=== PATIENT | female | born 1950 | race Caucasian/White ===

== ENCOUNTER 2020-03-21 19:44 | Inpatient (IN) | payer MEDICARE, BC ==
[~2020-03-21] VITALS: Ht 162.6 cm; Wt 69.5 kg
[~2020-03-21 19:44] MED LIST: CENTTAB47 PO; LEVO50TA45 PO; OMEP1CAP73 PO; PRAV1TAB39 PO; PROAAER10 IN; PROBCAP4 PO; SERT25TA85 PO; SING10TA32 PO; TYLE500T78 PO; VITA-243 PO; VITA2000 PO
[2020-03-21] MEDS ORDERED: ATIV1TAB7 PO (21:37)
[2020-03-21] MEDS ORDERED: LORazepam 1 MG TAB PO STA (21:58)
[2020-03-22] MEDS ORDERED: ACETAMINOPHEN TAB 650MG DOSE (2X325MG) PO PRN
[2020-03-22] MEDS ORDERED: MOM 30ML SUSPENSION UDC PO PRN
[2020-03-22] MEDS ORDERED: LORazepam 1 MG TAB PO PRN
[2020-03-22] MEDS ORDERED: traZODone 50 MG TAB PO PRN
[2020-03-22] MEDS ORDERED: MAALOX 30 ML SUSP *UDC PO PRN
[2020-03-22] MEDS ORDERED: MULTCAP PO (00:33)
[2020-03-22] MEDS ORDERED: VITAD1000T PO (00:33)
[2020-03-22] MEDS ORDERED: PROBCAP14 PO (00:33)
[2020-03-22] MEDS ORDERED: ATIV1TAB7 PO (00:35)
[2020-03-22 01:44] VITALS: BP 125/71
[2020-03-22] MEDS ORDERED: ALBUTEROL 90 MCG/ACT 8GM HFA INHALER INH PRN (02:15)
[2020-03-22] MEDS: LEVOTHYROXINE 50MCG TABLET (0.05MG) PO SCH (06:05)
[2020-03-22 06:23] VITALS: BP 109/69
--- NOTE | 2020-03-22 07:46 | HPEPDOC ---
[facility] Medical History & Physical Date of Admission March 21, 2020 Date of Service: March 22, 2020 History and Physical CHIEF COMPLAINT: Medical H&P for [facility] HISTORY OF PRESENT ILLNESS: 69 yo female transferred from [facility] for hallucinations, paranoia and suicidal ideation. Patient very talkative with numerous complaints. She feels her hands have 'changed' and are 'not the same'. PAST MEDICAL HISTORY: #chronic sinusitis s/p surgery #colonic polyp removal - benign - 2014 #as per patient - LLL lobectomy due to bronchiectasis , done in [place] ALLERGIES: Please see below. REVIEW OF SYSTEMS: Negative except as per HPI HOME MEDICATIONS: Please see below. PHYSICAL EXAMINATION: VITAL SIGNS: See below GENERAL APPEARANCE: NAD, anxious, talkative HEENT: NC/AT, EOMI Lungs: CTA B/L Heart: +S1S2, RRR Abd: soft, NT, +BS Ext: no edema, good peripheral pulses b/l UE, +Allens test, warm to touch Neuro: 5/5 strength b/l UE, sensation intact LABORATORY DATA: See below. MICROBIOLOGY: Please see below. ASSESSMENT: 69 yo female with PMHx of chronic sinusitis s/p surgery, and colonic polyp s/p removal - benign, transferred to [facility] by police care from [facility] for hallucinations, paranoia and suicidal ideation. #psych/SI - as per primary team - psychiatry #chronic sinusitis - no complaints #colonic polyp - she states she has had follow up Vital Signs Vital Signs Date Time Temp Pulse Resp B/P (MAP) Pulse Ox O2 Delivery O2 Flow Rate FiO2 03/22/20 06:23 97.9 80 12 109/69 (82) 03/22/20 01:44 99 Room Air Home Medications Scheduled Ascorbic Acid (Vitamin C) 500 Mg Tab, 500 MG PO QHS Cholecalciferol (Vitamin D3) (Vitamin D3) 1,000 Unit Tablet, 2,000 UNITS PO QHS Lactobacillus Acidophilus (Probiotic) 1 Each Capsule, 1 CAP PO QHS Levothyroxine Sodium (Levoxyl) 50 Mcg Tab, 50 MCG PO DAILY Montelukast Sodium (Singulair) 10 Mg Tab, 10 MG PO QHS Multivitamin (Multivitamins) 1 Each Capsule, 1 CAP PO QHS Pravastatin Sodium (Pravachol) 20 Mg Tab, 20 MG PO QHS Scheduled PRN Albuterol Sulfate (Proair Hfa) 108 Mcg/Act Aer, 108 MCG IN for WHEEZING Lorazepam (Ativan) 1 Mg Tablet, 1 MG PO BID PRN for ANXIETY NEW MEDICATION, HAS NOT STARTED HOME MED YET Allergies Coded Allergies: Quinolones (Verified Allergy, Mild, shaking, 03/21/20) Sulfa (Sulfonamide Antibiotics) (Verified Allergy, Mild, hives, 03/21/20) cefuroxime (Verified Allergy, Mild, 03/21/20) tetracycline (Verified Allergy, Mild, headache, 03/21/20) Cephalosporins (Verified Allergy, Unknown, 03/21/20) cod liver oil (Verified Allergy, Unknown, 03/21/20) moxifloxacin (Verified Allergy, Unknown, 03/21/20) A-FIB/CHADSVASC A-FIB History Current/History of A-Fib/PAF?: No SHABBIR WEIR MD March 22, 2020 07:43
[2020-03-22] MEDS ORDERED: FLUBLOK(EGG FREE)(QUAD)INFLUENZA VACC 0.5ML SYRINGE (90682)18YRS&OLDER IM ONE (09:00)
[2020-03-22] MEDS ORDERED: PREVNAR 13 VACCINE SYRINGE (CPT CODE:90670) IM ONE (09:00)
[2020-03-22 10:17] LABS: BASO # 0.1 10^3/uL (0.0-0.2); BASO % 1.1 % (0.0-1.0); EOS # 0.1 10^3/uL (0.0-0.5); EOS % 1.5 % (0.0-3.0); HEMATOCRIT 47.4 % (36.0-47.0); HEMOGLOBIN 15.3 g/dl (12.0-15.5); LYMPH # 1.5 10^3/uL (1.5-5.0); LYMPH % 27.2 % (24.0-44.0); MEAN CORPUSCULAR HEMOGLOBIN 30.1 pg (27.0-33.0); MEAN CORPUSCULAR HGB CONC 32.3 g/dl (32.0-36.5); MEAN CORPUSCULAR VOLUME 93.3 fl (80.0-96.0); MONO # 0.7 10^3/uL (0.0-0.8); MONO % 12.9 % (0.0-5.0); NEUTROPHILS % 56.9 % (36.0-66.0); PLATELET COUNT, AUTOMATED 340 10^3/uL (150-450); RED BLOOD COUNT 5.08 10^6/uL (4.00-5.40); WHITE BLOOD COUNT 5.3 10^3/uL (4.0-10.0)
[2020-03-22 10:39] LABS: ALBUMIN 3.7 GM/DL (3.2-5.2); ALT/SGPT 18 U/L (12-78); BILIRUBIN,TOTAL 0.5 MG/DL (0.2-1.0); BLOOD UREA NITROGEN 6 MG/DL (7-18); CALCIUM LEVEL 9.5 MG/DL (8.8-10.2); CARBON DIOXIDE LEVEL 31 MEQ/L (21-32); CHLORIDE LEVEL 104 MEQ/L (98-107); CREATININE FOR GFR 0.86 MG/DL (0.55-1.30); GLOMERULAR FILTRATION RATE > 60.0 (>45); GLUCOSE, FASTING 92 MG/DL (70-100); POTASSIUM SERUM 4.5 MEQ/L (3.5-5.1); SODIUM LEVEL 141 MEQ/L (136-145); TOTAL PROTEIN 7.2 GM/DL (6.4-8.2)
[2020-03-22] MEDS: MONTELUKAST 10 MG TAB PO SCH ×2 (22:10→22:34)
[2020-03-22] MEDS: ASCORBIC ACID 500 MG TAB PO SCH ×2 (22:10→22:34)
[2020-03-22] MEDS: PRAVASTATIN 20 MG TAB PO SCH ×2 (22:10→22:34)
[2020-03-22] MEDS: VITAMIN D 1,000 INTERNATIONAL UNITS TABLET PO SCH ×2 (22:11→22:34)
[2020-03-23] MEDS: LEVOTHYROXINE 50MCG TABLET (0.05MG) PO SCH (05:51)
[2020-03-23 06:12] VITALS: BP 131/63
--- NOTE | 2020-03-23 09:59 | MHDSPDOC ---
[facility] Discharge Summary Discharge Summary DATE OF ADMISSION: March 21, 2020 at 23:50 DATE OF DISCHARGE: Mar 23, 2020 at 12:30 DISCHARGE DIAGNOSES: 1. Adjustment disorder. 2. Malingering. REASON FOR ADMISSION: 69-year-old woman admitted after reportedly having significant anxiety, she was initially seen and had been disposition for discharge from the ER but had subsequently insisted on staying. She was admitted and not resumed on her home search lien as she had not taken it. CONSULTANTS INVOLVED: none TREATMENT AND PROGRESS ON THE UNIT :. The patient was admitted to the unit, without any other medications than her Ativan, she generally had an uneventful mission, she generally was interested in leaving and then subsequently changed her mind multiple times. The patient generally focused on gaining more attention by wanting to leave and then subsequently being upset when she is not allowed to. During her admission. No significant medication changes are made and she was admitted under voluntary status and she requested to go. During her discharge process. She continued to attempt to malinger for attention until proper boundaries were placed. DISCHARGE ASSESSMENT: 69-year-old woman with likely adjustment problems on malingering for attention presents send is treated with the supportive environment, which appears to demonstrate no significant effect. She is nonpsychotic with no suicidal or homicidal ideation. At this time. Her anxiety is unclear. However, I get the sense that this individuals probably a cluster C personality of some variety. However, she does not meet involuntary criteria on her discharge as she is nonpsychotic with a relatively normal mental status exam and has demonstrated no concerning ideation towards herself or others and has been in behavioral control. General: Well dressed with good hygiene Speech: Spontaneous and fluid Thought processes: Linear and logical Thought content: Future orientated Abstract reasoning, and computation: Intact Description of associations: Intact Description of abnormal or psychotic thoughts:Denies any suicidal or homicidal ideation. Denies any auditory or visual hallucinations. Does not appear to be responding to internal stimuli. Does not appear to be endorsing any bizarre or paranoid ideation. Judgment: chronically limited Insight: chronically limited Orientation: Alert and orientated 3 Recent and remote memory: Intact Attention span and concentration: Intact Fund of knowledge: Adequate Mood: "okay" Affect: Euthymic with a full range PLAN/FOLLOWUP ARRANGEMENTS: follow-up made with behavioral health provider, safety planning done with son. The amount of time spent in the coordination of care for this patient was approximately 45 minutes. Vital Signs/I&Os Vital Signs Date Time Temp Pulse Resp B/P (MAP) Pulse Ox O2 Delivery O2 Flow Rate FiO2 03/23/20 06:12 97.6 89 16 131/63 (85) 03/22/20 01:44 99 Room Air Medications Scheduled Ascorbic Acid (Vitamin C) 500 Mg Tab, 500 MG PO QHS, (Reported) Cholecalciferol (Vitamin D3) (Vitamin D3) 1,000 Unit Tablet, 2,000 UNITS PO QHS, (Reported) Lactobacillus Acidophilus (Probiotic) 1 Each Capsule, 1 CAP PO QHS, (Reported) Levothyroxine Sodium (Levoxyl) 50 Mcg Tab, 50 MCG PO DAILY, (Reported) Montelukast Sodium (Singulair) 10 Mg Tab, 10 MG PO QHS, (Reported) Multivitamin (Multivitamins) 1 Each Capsule, 1 CAP PO QHS, (Reported) Pravastatin Sodium (Pravachol) 20 Mg Tab, 20 MG PO QHS, (Reported) Scheduled PRN Albuterol Sulfate (Proair Hfa) 108 Mcg/Act Aer, 108 MCG IN for WHEEZING, (Reported) Lorazepam (Ativan) 1 Mg Tablet, 1 MG PO BID PRN for ANXIETY, (Reported) NEW MEDICATION, HAS NOT STARTED HOME MED YET Allergies Coded Allergies: Quinolones (Verified Allergy, Mild, shaking, 03/21/20) Sulfa (Sulfonamide Antibiotics) (Verified Allergy, Mild, hives, 03/21/20) cefuroxime (Verified Allergy, Mild, 03/21/20) tetracycline (Verified Allergy, Mild, headache, 03/21/20) Cephalosporins (Verified Allergy, Unknown, 03/21/20) cod liver oil (Verified Allergy, Unknown, 03/21/20) moxifloxacin (Verified Allergy, Unknown, 03/21/20) MARIANNA MART DO Mar 23, 2020 09:59
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
== END 2020-03-23 12:30 | disposition home or self-care (01) | DRG 882 ==
LOC: M ED 19:44 → M ED INP 23:50 → M PSY 03-22 00:37
PROVIDERS: ADMIT Psychiatry & Neurology Psychiatry; ATTEND Psychiatry & Neurology Addiction Medicine
DX: F43.20 Adjustment disorder, unspecified (principal); Z76.5 Malingerer [conscious simulation]; Z79.899 Other long term (current) drug therapy; Z88.2 Allergy status to sulfonamides; Z88.8 Allergy status to other drugs, medicaments and biological substances

== ENCOUNTER 2020-04-03 15:41 | Inpatient (IN) | payer MEDICARE, BC ==
[~2020-04-03] VITALS: Ht 162.6 cm; Wt 67.1 kg
[~2020-04-03 15:41] MED LIST changes: +ATIV1TAB7 PO; +D31000TA2 PO; +MULTCAP PO; +PROBCAP14 PO
[2020-04-03 16:27] LABS: HEMOGLOBIN 14.5 g/dl (12.0-15.5); MEAN CORPUSCULAR HEMOGLOBIN 30.8 pg (27.0-33.0); MEAN CORPUSCULAR VOLUME 93.4 fl (80.0-96.0); PLATELET COUNT, AUTOMATED 287 10^3/uL (150-450); RED BLOOD COUNT 4.71 10^6/uL (4.00-5.40); WHITE BLOOD COUNT 5.5 10^3/uL (4.0-10.0)
[2020-04-03 17:05] LABS: ALBUMIN 3.7 GM/DL (3.2-5.2); ALT/SGPT 20 U/L (12-78); BILIRUBIN,DIRECT 0.1 MG/DL (0.0-0.2); BILIRUBIN,TOTAL 0.4 MG/DL (0.2-1.0); BLOOD UREA NITROGEN 9 MG/DL (7-18); CALCIUM LEVEL 9.5 MG/DL (8.8-10.2); CARBON DIOXIDE LEVEL 29 MEQ/L (21-32); CHLORIDE LEVEL 102 MEQ/L (98-107); CREATININE FOR GFR 0.74 MG/DL (0.55-1.30); ETHYL ALCOHOL (ETHANOL) < 0.003 % (0.000-0.010); GLOMERULAR FILTRATION RATE > 60.0 (>45); GLUCOSE, FASTING 103 MG/DL (70-100); POTASSIUM SERUM 4.2 MEQ/L (3.5-5.1); SALICYLATE LEVEL < 1.7 MG/DL (5.0-30.0); SODIUM LEVEL 137 MEQ/L (136-145)
[2020-04-03 17:06] LABS: ACETAMINOPHEN LEVEL < 2.0 UG/ML (10.0-30.0)
[2020-04-03 17:16] LABS: AMPHETAMINES LEVEL URINE NEGATIVE (NEGATIVE); BARBITURATES URINE NEGATIVE (NEGATIVE); BENZODIAZEPINES URINE NEGATIVE (NEGATIVE); CANNABINOIDS URINE NEGATIVE (NEGATIVE); COCAINE METABOLITE URINE NEGATIVE (NEGATIVE); METHADONE URINE NEGATIVE (NEGATIVE); OPIATES URINE NEGATIVE (NEGATIVE); PHENCYCLIDINE URINE NEGATIVE (NEGATIVE)
[2020-04-03] MEDS: PRAVASTATIN 20 MG TAB PO SCH (21:00)
[2020-04-03] MEDS: VITAMIN D 1,000 INTERNATIONAL UNITS TABLET PO SCH (21:00)
[2020-04-03] MEDS: MONTELUKAST 10 MG TAB PO SCH (21:00)
[2020-04-03] MEDS: ASCORBIC ACID 500 MG TAB PO SCH (21:00)
[2020-04-03] MEDS ORDERED: ALBUTEROL 90 MCG/ACT 8GM HFA INHALER INH PRN (21:15)
[2020-04-03] MEDS ORDERED: OLANZapine ORAL DISINTEGRATING TAB 5MG PO PRN (21:15)
[2020-04-03] MEDS ORDERED: ACETAMINOPHEN TAB 650MG DOSE (2X325MG) PO PRN (21:15)
[2020-04-03] MEDS ORDERED: MAALOX 30 ML SUSP *UDC PO PRN (21:15)
[2020-04-03] MEDS ORDERED: traZODone 50 MG TAB PO PRN (21:15)
[2020-04-03] MEDS ORDERED: MOM 30ML SUSPENSION UDC PO PRN (21:15)
[2020-04-04 02:07] VITALS: BP 158/77
[2020-04-04] MEDS: LEVOTHYROXINE 50MCG TABLET (0.05MG) PO SCH (06:08)
[2020-04-04 06:26] VITALS: BP 122/78
[2020-04-04] MEDS ORDERED: LACTOBACILLUS ACIDOPHILUS CAP (BACID) PO SCH (09:00)
[2020-04-04] MEDS ORDERED: MULTIVITAMINS/MINERALS THERAP 1 TAB PO SCH (09:00)
--- NOTE | 2020-04-04 15:20 | REP ---
Two-view chest: 04/04/2020. Indication: Dyspnea. Cough. Comparison: 08/21/2012. Findings: The lungs are clear. Postoperative sequelae of the left arm noted with multiple surgical clips. There is no pleural effusion or pneumothorax. Cardiac silhouette is normal. Impression: Clear lungs. Electronically Signed by Chepe Reese DO 04/04/2020 03:11 P
[2020-04-04 16:25] VITALS: BP 138/84
[2020-04-04] MEDS: SERTRALINE HCL 25 MG TABLET PO SCH (16:29)
--- NOTE | 2020-04-04 17:07 | HPE ---
DATE OF ADMISSION: 04/04/2020 CHIEF COMPLAINT: "I think I have COVID." HISTORY OF PRESENT ILLNESS: 69-year-old female with history of paranoia, hallucinations, suicidal ideation, admitted to inpatient mental health unit and had traveled here from January 24 from [place], where she had been living in quarantine with her , who has been someone who has been on chemotherapy. Her has been checked for COVID times 4, all of which have been negative. The patient has been checked in [place], which was also negative. She now presents and says that she has a cough without fever, feels that she is cold, cough is productive of white sputum. No nausea, vomiting or abdominal pain. Says "I have COVID toes." Hospitalist was asked to evaluate for medical issues. The patient otherwise has had no headache. She has had 20 pound weight loss for the past six months and says that she has not been eating well. No nausea or vomiting. The patient has not had prior colonoscopy. No bright red blood per rectum, melena or any black tarry stools in the past. She had a prior history of colonic polyp removed, which was benign in 2014 and a left lower lobe lobectomy due to bronchiectasis, that was done in [place]. The patient otherwise denies any sore throat, dysuria, urgency, frequency, bilateral upper or lower extremity weakness or paresthesias. No bright red blood per rectum, melena or black tarry stools. PAST MEDICAL HISTORY: 1. Sinusitis. 2. Colonic polyp. 3. Left lower lobe lobectomy, status post due to bronchiectasis. 4. History of suicidal ideation, paranoia and hallucinations. ALLERGIES: CEPHALOSPORINS, COD FISH, QUINOLONES, SULFA, CEFUROXIME, MOXIFLOXACIN AND TETRACYCLINE. PAST SURGICAL HISTORY: Colon polyp removal, left lower lobectomy SOCIAL HISTORY: Denies cigarettes, alcohol, recreational drug use, retired. REVIEW OF SYSTEMS: Per history of present illness, 12-point system otherwise negative. PHYSICAL EXAMINATION: Temperature 99.4, pulse 101, respiratory rate 18, blood pressure 122/78, 98% on room air. General: The patient is awake, alert, and oriented times 3. Appears disheveled, anxious, pressured speech. No jugular venous distension (JVD), thyromegaly. Dry mucous membranes. Lungs are clear to auscultation. No wheezing, rales or rhonchi. Heart: S1, S2 sinus rhythm. Abdomen is soft, nontender, nondistended. Extremities: No cyanosis, clubbing or pitting edema. LABORATORY DATA: 04/03 complete blood count (CBC): White count 5.5, hemoglobin 14, hematocrit 44, platelet count 287. Sodium 137, potassium 4.2, chloride 102, bicarbonate 29, BUN 9, creatinine 0.74, chloride of 103. Calcium 9.5. Total bilirubin 0.4, direct bilirubin 0.1, AST 13, ALT 20, alkaline phosphatase 83, total protein 7, albumin of 3.7, thyroid simulating hormone (TSH) of 1.88. Urine toxicology screen is negative. ASSESSMENT AND PLAN: This is a 69-year-old female with history of chronic sinusitis, left lower lobectomy, colon polyp removal, which was benign, paranoia hallucinations, suicidal ideation, admitted for severe depression to inpatient mental health unit and she said "I have COVID." CURRENT ISSUES: 1. Cough, obtain a chest x-ray and respiratory panel and on empiric antibiotics. The patient has no fever or white count. 2. Severe depression, refer to psychiatrist for management. 3. History of colonic polyp removal, which was benign in 2014. No other acute issues. 4. History of chronic sinusitis, no sinus complaints or symptoms. 5. History of bronchiectasis. Will obtain a chest x-ray, outpatient followup with primary care physician. ELOISA
[2020-04-04] MEDS: OLANZapine ORAL DISINTEGRATING TAB 5MG PO SCH ×2 (17:15→21:06)
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
[2020-04-04] MEDS: MULTIVITAMINS/MINERALS THERAP 1 TAB PO SCH (21:06)
[2020-04-04] MEDS: LACTOBACILLUS ACIDOPHILUS CAP (BACID) PO SCH (21:06)
[2020-04-04] MEDS: VITAMIN D 1,000 INTERNATIONAL UNITS TABLET PO SCH (21:06)
[2020-04-04] MEDS: MONTELUKAST 10 MG TAB PO SCH (21:06)
[2020-04-04] MEDS: ASCORBIC ACID 500 MG TAB PO SCH (22:27)
[2020-04-04] MEDS: PRAVASTATIN 20 MG TAB PO SCH (22:27)
[2020-04-05] MEDS: LEVOTHYROXINE 50MCG TABLET (0.05MG) PO SCH (06:23)
[2020-04-05 06:43] VITALS: BP 130/58
[2020-04-05] MEDS: SERTRALINE HCL 25 MG TABLET PO SCH (08:37)
[2020-04-05] MEDS: OLANZapine ORAL DISINTEGRATING TAB 5MG PO SCH ×3 (08:37→21:21)
[2020-04-05 16:28] VITALS: BP 129/78
--- NOTE | 2020-04-05 17:05 | MHIPNPDOC ---
[facility] Progress Note Progress Note DATE OF SERVICE: 04/05/20 HISTORY: As per ED report: "Pt presented to ED via [facility]. Pt was D/C from [facility] this morning.Pt reported, had a CT of her head, nothing found. According to Pt's Son; Jerad, Pt continued to call her Son this morning to insist be tested for COVIN today. was tested 4xs. Pt's is diagnosed with Lymphoma and was D/C from Hospital today. "Didn't want to bring him to house, our house is too germy". "I don't know where he is". Family fears for 's safety if Pt is near him. "Keep thinking there is something physical going on with my body". Pt is obsessed with her health, is obsessed with her hands changing appearance. "I am not feeling myself". "Can't keep ahold of all this". Pt is incraseingly worried, obsessing about germs around . Per Pt's Son; Jerad, Pt is totally spiraling down, decompensating since last D/C from [facility]. Pt is increased manic, "Buligerant", disrespectful to others, continues to cycle around, rapid speech. Pt is convinced has COVIN and will contaminate the world because she wasn't able to control it. Pt believes she will go to assisted because of it. Pt has locked herself in house since ret urning from [facility]. She thinks it (virus) is bouncing back and fourth between the 2 of them. Family is afraid she will burn the house down if people come to get her. Pt is becoming more and more obsessive about the virus, according to Family'. VITAL SIGNS: See below. NEW TEST RESULTS: See below CURRENT MEDICATIONS: See below. MENTAL STATUS EXAMINATION: General Appearance: well groomed, appears stated age, hospital scrubs/clothing, wearing a face mask Build: average Demeanor: preoccupied Eye Contact: avoidant, at times is good Activity: anxious, Behavior: cooperative, restless, talkative, very anxious, obsessed about having COVID-19 Speech: clear, spontaneous, normal volume, loud at times, very talkative Mood: depressed, anxious Affect: inappropriate, anxious, disorganized Thought Process: circumstantial, tangential, flight of ideas, racing. obsessed Thought Content (Delusions): somatic delusions, anxious thoughts Thought Content (Other): preoccupied, obsessional, denies SI/HI Thought Content (Aggressive): none reported Perception (Hallucinations): none reported Perception (Other): none reported Cognition (Impairment of): memory, attention/concentration Cognition(Intelligence Est.): average Oriented: Awake, Alert Insight: poor Judgment: Poor Diagnoses 1. Illness Anxiety disorder 2. Adjustment disorder with anxious distress secondary to COVID-19 pandemic. 3. R/O Delusional disorder ( she thinks she has Covid-19) ASSESSMENT: She says she went to sleep last night but when she woke up this morning she felt weak, she had aches and pains this morning. she still feels that she has COVID-19. Now she feels that is the test they did on her some time ago. She perseverates about having COVID-19, she says she has the latest manifestations of the illness, she doesn't believe the test is negative. MANAGEMENT PLAN: Will continue with current treatment plan TIME SPENT: 20 minutes. Vital Signs Vital Signs Date Time Temp Pulse Resp B/P (MAP) Pulse Ox O2 Delivery O2 Flow Rate FiO2 04/05/20 06:43 98.1 85 18 130/58 (82) Room Air 04/04/20 02:07 98 Current Medications Current Medications Medications (Trade) Dose Ordered Sig/Melonie Route PRN Reason Start Time Stop Time Status Last Admin Dose Admin Acetaminophen (Tylenol Tab) 650 mg Q6HP PRN PO HEADACHE or DISCOMFORT 04/03/20 21:15 Al Hydrox/Mg Hydrox/Simethicone (Mylanta) 30 ml Q4HP PRN PO HEARTBURN/INDIGESTION 04/03/20 21:15 Albuterol Sulfate (Proventil, Ventolin Hfa) 2 puff Q6HP PRN INH WHEEZING 04/03/20 21:15 Ascorbic Acid (Vitamin C) 500 mg QHS PO 04/03/20 21:00 04/04/20 22:27 Home Med (Med Rec Complete!) ASDIRECTED XX 04/03/20 20:30 04/03/20 20:20 DC Lactobacillus Acidophilus (Bacid) 1 ea DAILY PO 04/04/20 09:00 04/04/20 17:18 DC Lactobacillus Acidophilus (Bacid) 1 ea QHS PO 04/04/20 21:00 04/04/20 21:06 Levothyroxine Sodium (Synthroid) 50 mcg DAILY@0600 PO 04/04/20 06:00 04/05/20 06:23 Magnesium Hydroxide (Milk Of Magnesia) 30 ml DAILYPRN PRN PO CONSTIPATION 04/03/20 21:15 Montelukast Sodium (Singulair) 10 mg QHS PO 04/03/20 21:00 04/04/20 21:06 Multivitamins (Theragram-M) 1 tab DAILY PO 04/04/20 09:00 04/04/20 17:18 DC Multivitamins (Theragram-M) 1 tab QHS PO 04/04/20 21:00 04/04/20 21:06 Olanzapine (ZyPREXA ZYDIS) 5 mg Q4HP PRN PO AGITATION 04/03/20 21:15 04/04/20 16:35 DC Olanzapine (ZyPREXA ZYDIS) 5 mg TID PO 04/04/20 16:00 04/05/20 15:37 Pravastatin Sodium (Pravachol) 20 mg QHS PO 04/03/20 21:00 04/04/20 22:27 Sertraline HCl (Zoloft) 25 mg QAM PO 04/04/20 09:00 04/05/20 08:37 Trazodone HCl (Desyrel) 50 mg QHSP PRN PO INSOMNIA 04/03/20 21:15 Vitamin D (Vitamin D) 2,000 units QHS PO 04/03/20 21:00 04/04/20 21:06 Allergies Coded Allergies: Sulfa (Sulfonamide Antibiotics) (Verified Allergy, Intermediate, hives, 04/03/20) cefuroxime (Verified Allergy, Mild, 04/03/20) Cephalosporins (Verified Allergy, Unknown, 04/03/20) moxifloxacin (Verified Allergy, Unknown, 04/03/20) Codfish (Verified Adverse Reaction, Intermediate, vomiting/diarrhea, 04/03/20) Quinolones (Verified Adverse Reaction, Mild, shaking, 04/03/20) tetracycline (Verified Adverse Reaction, Mild, headache, 04/03/20) LISY GOMEZ MD Apr 05, 2020 16:08
[2020-04-05] MEDS: MULTIVITAMINS/MINERALS THERAP 1 TAB PO SCH (21:21)
[2020-04-05] MEDS: MONTELUKAST 10 MG TAB PO SCH (21:21)
[2020-04-05] MEDS: VITAMIN D 1,000 INTERNATIONAL UNITS TABLET PO SCH (21:21)
[2020-04-05] MEDS: LACTOBACILLUS ACIDOPHILUS CAP (BACID) PO SCH (21:21)
[2020-04-05] MEDS: ASCORBIC ACID 500 MG TAB PO SCH (21:21)
[2020-04-05] MEDS: PRAVASTATIN 20 MG TAB PO SCH (21:21)
[2020-04-06] MEDS: LEVOTHYROXINE 50MCG TABLET (0.05MG) PO SCH (06:11)
[2020-04-06 06:39] VITALS: BP 132/70
[2020-04-06] MEDS: OLANZapine ORAL DISINTEGRATING TAB 5MG PO SCH ×2 (09:13→21:18)
[2020-04-06] MEDS: SERTRALINE HCL 50 MG TAB PO SCH (09:13)
[2020-04-06 15:45] VITALS: BP 130/70
[2020-04-06] MEDS: LACTOBACILLUS ACIDOPHILUS CAP (BACID) PO SCH (21:18)
[2020-04-06] MEDS: MULTIVITAMINS/MINERALS THERAP 1 TAB PO SCH (21:18)
[2020-04-06] MEDS: PRAVASTATIN 20 MG TAB PO SCH (21:18)
[2020-04-06] MEDS: ASCORBIC ACID 500 MG TAB PO SCH (21:18)
[2020-04-06] MEDS: MONTELUKAST 10 MG TAB PO SCH (21:18)
[2020-04-06] MEDS: VITAMIN D 1,000 INTERNATIONAL UNITS TABLET PO SCH (21:18)
[2020-04-07 06:00] VITALS: BP 145/77
[2020-04-07] MEDS: LEVOTHYROXINE 50MCG TABLET (0.05MG) PO SCH (06:12)
[2020-04-07] MEDS: SERTRALINE HCL 50 MG TAB PO SCH (08:40)
[2020-04-07 17:26] VITALS: BP 112/63
--- NOTE | 2020-04-07 18:40 | MHIPN ---
DATE: 04/07/2020 This is a progress note for the patient, it is a video assessment, we are doing this because of the virus pandemic. The patient is aware of it. VITAL SIGNS: Blood pressure 145/77, pulse 99, temperature 99.2. CHIEF COMPLAINT: She say she feels better. SUBJECTIVE: She is seen for followup, in the presence of staff. I have been assigned to her care today. I know her from her previous hospitalization a couple of weeks ago. She says she has been feeling better, and spoke of her anxieties related to the pandemic, the impact that the anxieties are having on her and her concerns for her . She tried reiterate what had happened, over the last couple of weeks, including her not being entirely convinced that the tests that were done on her and her, for COVID, which all turned out to be negative, were necessarily accurate. She says she believes their accuracy now "about 50%." She says she was less convinced a couple of days ago. She says last night was okay. She has also felt quite tired after she had been started on Zyprexa at 15 mg a day in divided doses, but that has been brought down, and she will be using only 5 mg at night from [facility] onwards. MENTAL STATUS EXAMINATION: She is cooperative, she is neat, she wears a mask. There is no psychomotor retardation but she is mildly fidgety, appears anxious. She is coherent, but somewhat circumstantial. Denies any thoughts of harming herself or anyone else and possibly has delusions, somatic, as well as those related to the COVID, in other words anxiety is so severe that she has possibly had difficulties with reality testing lately. She is alert and oriented. Judgment and insight remain compromised. ASSESSMENT: 1. Illness anxiety disorder. 2. Consider major depressive disorder now, with possible psychotic features. The other differential includes delusional disorder. She remains anxious, not convinced that the tests done on her were accurate, or her , they were all negative. The intensity of her belief probably reaches delusional proportions, it is mostly fixed, despite evidence of the contrary. PLAN: I would suggest continuing current care, observations, and the decrease in the olanzapine may help with sedation. She is to be encouraged to participate in activities as tolerated. Further recommendations will be made depending on the clinical picture. She will be assigned a psychiatrist tomorrow.
[2020-04-07] MEDS: VITAMIN D 1,000 INTERNATIONAL UNITS TABLET PO SCH (20:32)
[2020-04-07] MEDS: PRAVASTATIN 20 MG TAB PO SCH (20:32)
[2020-04-07] MEDS: MONTELUKAST 10 MG TAB PO SCH (20:32)
[2020-04-07] MEDS: ASCORBIC ACID 500 MG TAB PO SCH (20:32)
[2020-04-07] MEDS: MULTIVITAMINS/MINERALS THERAP 1 TAB PO SCH (20:32)
[2020-04-07] MEDS: LACTOBACILLUS ACIDOPHILUS CAP (BACID) PO SCH (20:32)
[2020-04-07] MEDS: OLANZapine ORAL DISINTEGRATING TAB 5MG PO SCH (20:32)
[2020-04-08] MEDS: LEVOTHYROXINE 50MCG TABLET (0.05MG) PO SCH (06:02)
[2020-04-08 06:47] VITALS: BP 127/66
[2020-04-08] MEDS: SERTRALINE HCL 50 MG TAB PO SCH (09:03)
--- NOTE | 2020-04-08 10:30 | MHIPNPDOC ---
[facility] Progress Note Progress Note DATE OF SERVICE: 04/08/20 Jagdish Amato presents today for a follow-up visit after decreasing her dosage of Zyprexa. Patient notes that she felt better yesterday, however, today she feels worse. When she woke up this morning, she felt that she had an eye infection, and she is worried again because her has started chemo therapy for the first time. Patient also notes that she has been very anxious lately, and she retreated to bed for the day. Patient feels that she is no longer in touch with the world and anybody in it. Patient denies suicidal and homicidal ideation. Patient is paranoid that she will get COVID-19. Patient is currently taking Zyprexa. ROS Psychiatric: +Paranoia, +Anxiety Eyes: +Eye discharge Objective Appearance: Fair grooming. Behavior: Fair attention still highly preoccupied with COVID-19. Affect: Flat with little reactivity at times. Speech: Speech is fluid. Judgement: Poor judgement. Insight: Poor insight. Assessment F22 Delusional disorders Plan Patient is a 69-year-old woman with no major psychiatric history in the past. She presents with quite a delusional fixation on COVID-19. It appears primarily more fixed and doesnt extend to other delusional thought content, suggesting more of a delusional disorder thats isolated, rather than a major depression with specific ideation of mood symptoms. However, we will try to treat both sides to see if it helps. Delusional disorder, somatic type. Change Zyprexa to Abilify 5 mg at night. Continue Sertraline 50 mg. Follow-up tomorrow. Vital Signs Vital Signs Date Time Temp Pulse Resp B/P (MAP) Pulse Ox O2 Delivery O2 Flow Rate FiO2 04/08/20 08:27 Room Air 04/08/20 06:47 98.6 83 14 127/66 (86) 97 Current Medications Current Medications Medications (Trade) Dose Ordered Sig/Melonie Route PRN Reason Start Time Stop Time Status Last Admin Dose Admin Acetaminophen (Tylenol Tab) 650 mg Q6HP PRN PO HEADACHE or DISCOMFORT 04/03/20 21:15 Al Hydrox/Mg Hydrox/Simethicone (Mylanta) 30 ml Q4HP PRN PO HEARTBURN/INDIGESTION 04/03/20 21:15 Albuterol Sulfate (Proventil, Ventolin Hfa) 2 puff Q6HP PRN INH WHEEZING 04/03/20 21:15 Ascorbic Acid (Vitamin C) 500 mg QHS PO 04/03/20 21:00 04/07/20 20:32 Home Med (Med Rec Complete!) ASDIRECTED XX 04/03/20 20:30 04/03/20 20:20 DC Lactobacillus Acidophilus (Bacid) 1 ea DAILY PO 04/04/20 09:00 04/04/20 17:18 DC Lactobacillus Acidophilus (Bacid) 1 ea QHS PO 04/04/20 21:00 04/07/20 20:32 Levothyroxine Sodium (Synthroid) 50 mcg DAILY@0600 PO 04/04/20 06:00 04/08/20 06:02 Magnesium Hydroxide (Milk Of Magnesia) 30 ml DAILYPRN PRN PO CONSTIPATION 04/03/20 21:15 Montelukast Sodium (Singulair) 10 mg QHS PO 04/03/20 21:00 04/07/20 20:32 Multivitamins (Theragram-M) 1 tab DAILY PO 04/04/20 09:00 04/04/20 17:18 DC Multivitamins (Theragram-M) 1 tab QHS PO 04/04/20 21:00 04/07/20 20:32 Olanzapine (ZyPREXA ZYDIS) 5 mg Q4HP PRN PO AGITATION 04/03/20 21:15 04/04/20 16:35 DC Olanzapine (ZyPREXA ZYDIS) 5 mg QHS PO 04/06/20 21:00 04/07/20 20:32 Olanzapine (ZyPREXA ZYDIS) 5 mg TID PO 04/04/20 16:00 04/06/20 11:20 DC 04/06/20 09:13 Pravastatin Sodium (Pravachol) 20 mg QHS PO 04/03/20 21:00 04/07/20 20:32 Sertraline HCl (Zoloft) 25 mg QAM PO 04/04/20 09:00 04/05/20 17:04 DC 04/05/20 08:37 Sertraline HCl (Zoloft) 50 mg QAM PO 6/15/20 09:00 04/08/20 09:03 Trazodone HCl (Desyrel) 50 mg QHSP PRN PO INSOMNIA 04/03/20 21:15 Vitamin D (Vitamin D) 2,000 units QHS PO 04/03/20 21:00 04/07/20 20:32 Allergies Coded Allergies: Sulfa (Sulfonamide Antibiotics) (Verified Allergy, Intermediate, hives, 04/03/20) cefuroxime (Verified Allergy, Mild, 04/03/20) Cephalosporins (Verified Allergy, Unknown, 04/03/20) moxifloxacin (Verified Allergy, Unknown, 04/03/20) Codfish (Verified Adverse Reaction, Intermediate, vomiting/diarrhea, 04/03/20) Quinolones (Verified Adverse Reaction, Mild, shaking, 04/03/20) tetracycline (Verified Adverse Reaction, Mild, headache, 04/03/20) MARIANNA MART DO Apr 08, 2020 10:30
[2020-04-08 20:00] VITALS: BP 139/63
[2020-04-08] MEDS: ASCORBIC ACID 500 MG TAB PO SCH (20:56)
[2020-04-08] MEDS: VITAMIN D 1,000 INTERNATIONAL UNITS TABLET PO SCH (20:57)
[2020-04-08] MEDS: MONTELUKAST 10 MG TAB PO SCH (20:57)
[2020-04-08] MEDS: PRAVASTATIN 20 MG TAB PO SCH (20:57)
[2020-04-08] MEDS: MULTIVITAMINS/MINERALS THERAP 1 TAB PO SCH (20:58)
[2020-04-08] MEDS: LACTOBACILLUS ACIDOPHILUS CAP (BACID) PO SCH (20:58)
[2020-04-09] MEDS: LEVOTHYROXINE 50MCG TABLET (0.05MG) PO SCH (06:05)
[2020-04-09 06:15] VITALS: BP 123/84
[2020-04-09] MEDS: SERTRALINE HCL 50 MG TAB PO SCH (08:46)
--- NOTE | 2020-04-09 09:24 | MHIPNPDOC ---
[facility] Progress Note Progress Note Unable to see patient as telehealth couldn't be arranged after multiple attempts to reach unit, discussed with surface supervisor, unable to complete assessment. Vital Signs Vital Signs Date Time Temp Pulse Resp B/P (MAP) Pulse Ox O2 Delivery O2 Flow Rate FiO2 04/09/20 06:15 98.3 86 14 123/84 (97) Room Air 04/08/20 06:47 97 Current Medications Current Medications Medications (Trade) Dose Ordered Sig/Melonie Route PRN Reason Start Time Stop Time Status Last Admin Dose Admin Acetaminophen (Tylenol Tab) 650 mg Q6HP PRN PO HEADACHE or DISCOMFORT 04/03/20 21:15 Al Hydrox/Mg Hydrox/Simethicone (Mylanta) 30 ml Q4HP PRN PO HEARTBURN/INDIGESTION 04/03/20 21:15 Albuterol Sulfate (Proventil, Ventolin Hfa) 2 puff Q6HP PRN INH WHEEZING 04/03/20 21:15 Aripiprazole (AbiLIFY) 5 mg QHS PO 04/08/20 21:00 04/08/20 20:57 Ascorbic Acid (Vitamin C) 500 mg QHS PO 04/03/20 21:00 04/08/20 20:56 Home Med (Med Rec Complete!) ASDIRECTED XX 04/03/20 20:30 04/03/20 20:20 DC Lactobacillus Acidophilus (Bacid) 1 ea DAILY PO 04/04/20 09:00 04/04/20 17:18 DC Lactobacillus Acidophilus (Bacid) 1 ea QHS PO 04/04/20 21:00 04/08/20 20:58 Levothyroxine Sodium (Synthroid) 50 mcg DAILY@0600 PO 04/04/20 06:00 04/09/20 06:05 Magnesium Hydroxide (Milk Of Magnesia) 30 ml DAILYPRN PRN PO CONSTIPATION 04/03/20 21:15 Montelukast Sodium (Singulair) 10 mg QHS PO 04/03/20 21:00 04/08/20 20:57 Multivitamins (Theragram-M) 1 tab DAILY PO 04/04/20 09:00 04/04/20 17:18 DC Multivitamins (Theragram-M) 1 tab QHS PO 04/04/20 21:00 04/08/20 20:58 Olanzapine (ZyPREXA ZYDIS) 5 mg Q4HP PRN PO AGITATION 04/03/20 21:15 04/04/20 16:35 DC Olanzapine (ZyPREXA ZYDIS) 5 mg QHS PO 04/06/20 21:00 04/08/20 10:51 DC 04/07/20 20:32 Olanzapine (ZyPREXA ZYDIS) 5 mg TID PO 04/04/20 16:00 04/06/20 11:20 DC 04/06/20 09:13 Pravastatin Sodium (Pravachol) 20 mg QHS PO 04/03/20 21:00 04/08/20 20:57 Sertraline HCl (Zoloft) 25 mg QAM PO 04/04/20 09:00 04/05/20 17:04 DC 04/05/20 08:37 Sertraline HCl (Zoloft) 50 mg QAM PO 04/06/20 09:00 04/09/20 08:46 Trazodone HCl (Desyrel) 50 mg QHSP PRN PO INSOMNIA 04/03/20 21:15 Vitamin D (Vitamin D) 2,000 units QHS PO 04/03/20 21:00 04/08/20 20:57 Allergies Coded Allergies: Sulfa (Sulfonamide Antibiotics) (Verified Allergy, Intermediate, hives, 04/03/20) cefuroxime (Verified Allergy, Mild, 04/03/20) Cephalosporins (Verified Allergy, Unknown, 04/03/20) moxifloxacin (Verified Allergy, Unknown, 04/03/20) Codfish (Verified Adverse Reaction, Intermediate, vomiting/diarrhea, 04/03/20) Quinolones (Verified Adverse Reaction, Mild, shaking, 04/03/20) tetracycline (Verified Adverse Reaction, Mild, headache, 04/03/20) MARIANNA MART DO Apr 09, 2020 09:24
[2020-04-09 17:19] VITALS: BP 120/57
[2020-04-09] MEDS: VITAMIN D 1,000 INTERNATIONAL UNITS TABLET PO SCH (21:35)
[2020-04-09] MEDS: ASCORBIC ACID 500 MG TAB PO SCH (21:35)
[2020-04-09] MEDS: PRAVASTATIN 20 MG TAB PO SCH (21:35)
[2020-04-09] MEDS: MONTELUKAST 10 MG TAB PO SCH (21:35)
[2020-04-09] MEDS: LACTOBACILLUS ACIDOPHILUS CAP (BACID) PO SCH (21:36)
[2020-04-09] MEDS: MULTIVITAMINS/MINERALS THERAP 1 TAB PO SCH (21:36)
[2020-04-10] MEDS: LEVOTHYROXINE 50MCG TABLET (0.05MG) PO SCH (06:25)
[2020-04-10 06:55] VITALS: BP 119/55
--- NOTE | 2020-04-10 10:03 | MHIPNPDOC ---
[facility] Progress Note Progress Note The patient was seen on 04/10/20. HPI: Lima presents today for concerns regarding a follow up on her medications. Patient denies suicidal thoughts, homicidal thoughts, or hallucinations. Currently taking Abilify. She notes side effects (shakiness and jitteriness). REVIEW OF SYSTEMS: Psychiatric: +Difficulty concentrating Objective Appearance: Well groomed. fair hygiene. Well nourished. Mood: Appropriately reactive. Euthymic. Generally good. less paranoid. Cognition: Alert, Attentive, and Oriented to person, place, time. much less preoccupied and has more cognitive flexibility. Thought Form: Linear and goal directed. Judgement: intact as evidenced by decision making in the recent past. Insight: good insight into symptoms and treatment options. 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 Unspecified psychotic disorder. The patient is making some progress. Shes much less preoccupied with Covid and appears more euthymic today. Theres potential that this is MDD with psychotic features. Well continue to assess patient, possibly could be ready to go home next week. Vital Signs Vital Signs Date Time Temp Pulse Resp B/P (MAP) Pulse Ox O2 Delivery O2 Flow Rate FiO2 04/10/20 06:55 98.7 76 12 119/55 (76) 93 Room Air Current Medications Current Medications Medications (Trade) Dose Ordered Sig/Melonie Route PRN Reason Start Time Stop Time Status Last Admin Dose Admin Acetaminophen (Tylenol Tab) 650 mg Q6HP PRN PO HEADACHE or DISCOMFORT 04/03/20 21:15 Al Hydrox/Mg Hydrox/Simethicone (Mylanta) 30 ml Q4HP PRN PO HEARTBURN/INDIGESTION 04/03/20 21:15 Albuterol Sulfate (Proventil, Ventolin Hfa) 2 puff Q6HP PRN INH WHEEZING 04/03/20 21:15 Aripiprazole (AbiLIFY) 5 mg QHS PO 04/08/20 21:00 04/09/20 21:36 Ascorbic Acid (Vitamin C) 500 mg QHS PO 04/03/20 21:00 04/09/20 21:35 Home Med (Med Rec Complete!) ASDIRECTED XX 04/03/20 20:30 04/03/20 20:20 DC Lactobacillus Acidophilus (Bacid) 1 ea DAILY PO 04/04/20 09:00 04/04/20 17:18 DC Lactobacillus Acidophilus (Bacid) 1 ea QHS PO 04/04/20 21:00 04/09/20 21:36 Levothyroxine Sodium (Synthroid) 50 mcg DAILY@0600 PO 04/04/20 06:00 04/10/20 06:25 Magnesium Hydroxide (Milk Of Magnesia) 30 ml DAILYPRN PRN PO CONSTIPATION 04/03/20 21:15 Montelukast Sodium (Singulair) 10 mg QHS PO 04/03/20 21:00 04/09/20 21:35 Multivitamins (Theragram-M) 1 tab DAILY PO 04/04/20 09:00 04/04/20 17:18 DC Multivitamins (Theragram-M) 1 tab QHS PO 04/04/20 21:00 04/09/20 21:36 Olanzapine (ZyPREXA ZYDIS) 5 mg Q4HP PRN PO AGITATION 04/03/20 21:15 04/04/20 16:35 DC Olanzapine (ZyPREXA ZYDIS) 5 mg QHS PO 04/06/20 21:00 04/08/20 10:51 DC 04/07/20 20:32 Olanzapine (ZyPREXA ZYDIS) 5 mg TID PO 04/04/20 16:00 04/06/20 11:20 DC 04/06/20 09:13 Pravastatin Sodium (Pravachol) 20 mg QHS PO 04/03/20 21:00 04/09/20 21:35 Sertraline HCl (Zoloft) 25 mg QAM PO 04/04/20 09:00 04/05/20 17:04 DC 04/05/20 08:37 Sertraline HCl (Zoloft) 50 mg QAM PO 04/06/20 09:00 04/09/20 08:46 Trazodone HCl (Desyrel) 50 mg QHSP PRN PO INSOMNIA 04/03/20 21:15 Vitamin D (Vitamin D) 2,000 units QHS PO 04/03/20 21:00 04/09/20 21:35 Allergies Coded Allergies: Sulfa (Sulfonamide Antibiotics) (Verified Allergy, Intermediate, hives, 04/03/20) cefuroxime (Verified Allergy, Mild, 04/03/20) Cephalosporins (Verified Allergy, Unknown, 04/03/20) moxifloxacin (Verified Allergy, Unknown, 04/03/20) Codfish (Verified Adverse Reaction, Intermediate, vomiting/diarrhea, 04/03/20) Quinolones (Verified Adverse Reaction, Mild, shaking, 04/03/20) tetracycline (Verified Adverse Reaction, Mild, headache, 04/03/20) MARIANNA MART DO Apr 10, 2020 10:03
[2020-04-10] MEDS: SERTRALINE HCL 50 MG TAB PO SCH (10:40)
[2020-04-10 15:45] VITALS: BP 140/64
[2020-04-10] MEDS: LACTOBACILLUS ACIDOPHILUS CAP (BACID) PO SCH (20:16)
[2020-04-10] MEDS: ASCORBIC ACID 500 MG TAB PO SCH (20:16)
[2020-04-10] MEDS: MONTELUKAST 10 MG TAB PO SCH (20:16)
[2020-04-10] MEDS: VITAMIN D 1,000 INTERNATIONAL UNITS TABLET PO SCH (20:16)
[2020-04-10] MEDS: PRAVASTATIN 20 MG TAB PO SCH (20:16)
[2020-04-10] MEDS: ARIPiprazole 10 MG TAB PO SCH (20:16)
[2020-04-10] MEDS: MULTIVITAMINS/MINERALS THERAP 1 TAB PO SCH (20:16)
[2020-04-11] MEDS: LEVOTHYROXINE 50MCG TABLET (0.05MG) PO SCH (06:07)
[2020-04-11 06:26] VITALS: BP 130/59
[2020-04-11] MEDS: SERTRALINE HCL 50 MG TAB PO SCH (08:35)
[2020-04-11 15:32] VITALS: BP 125/61
[2020-04-11] MEDS: ARIPiprazole 10 MG TAB PO SCH (20:17)
[2020-04-11] MEDS: LACTOBACILLUS ACIDOPHILUS CAP (BACID) PO SCH (20:17)
[2020-04-11] MEDS: PRAVASTATIN 20 MG TAB PO SCH (20:18)
[2020-04-11] MEDS: MONTELUKAST 10 MG TAB PO SCH (20:18)
[2020-04-11] MEDS: MULTIVITAMINS/MINERALS THERAP 1 TAB PO SCH (20:18)
[2020-04-11] MEDS: VITAMIN D 1,000 INTERNATIONAL UNITS TABLET PO SCH (20:18)
[2020-04-11] MEDS: ASCORBIC ACID 500 MG TAB PO SCH (20:18)
[2020-04-12] MEDS: LEVOTHYROXINE 50MCG TABLET (0.05MG) PO SCH (06:04)
[2020-04-12 06:37] VITALS: BP 119/75
[2020-04-12] MEDS: SERTRALINE HCL 50 MG TAB PO SCH (09:17)
[2020-04-12 15:57] VITALS: BP 132/65
[2020-04-12] MEDS: MULTIVITAMINS/MINERALS THERAP 1 TAB PO SCH (20:19)
[2020-04-12] MEDS: LACTOBACILLUS ACIDOPHILUS CAP (BACID) PO SCH (20:19)
[2020-04-12] MEDS: ARIPiprazole 10 MG TAB PO SCH (20:19)
[2020-04-12] MEDS: MONTELUKAST 10 MG TAB PO SCH (20:20)
[2020-04-12] MEDS: ASCORBIC ACID 500 MG TAB PO SCH (20:20)
[2020-04-12] MEDS: VITAMIN D 1,000 INTERNATIONAL UNITS TABLET PO SCH (20:20)
[2020-04-12] MEDS: PRAVASTATIN 20 MG TAB PO SCH (20:20)
[2020-04-13] MEDS: LEVOTHYROXINE 50MCG TABLET (0.05MG) PO SCH (05:40)
[2020-04-13 05:45] VITALS: BP 128/61
[2020-04-13] MEDS: SERTRALINE HCL 50 MG TAB PO SCH (09:33)
[2020-04-13 16:41] VITALS: BP 126/69
[2020-04-13] MEDS: PRAVASTATIN 20 MG TAB PO SCH (20:32)
[2020-04-13] MEDS: ASCORBIC ACID 500 MG TAB PO SCH (20:32)
[2020-04-13] MEDS: LACTOBACILLUS ACIDOPHILUS CAP (BACID) PO SCH (20:32)
[2020-04-13] MEDS: MONTELUKAST 10 MG TAB PO SCH (20:32)
[2020-04-13] MEDS: MULTIVITAMINS/MINERALS THERAP 1 TAB PO SCH (20:32)
[2020-04-13] MEDS: VITAMIN D 1,000 INTERNATIONAL UNITS TABLET PO SCH (20:32)
[2020-04-13] MEDS: ARIPiprazole 10 MG TAB PO SCH (20:32)
[2020-04-14] MEDS: LEVOTHYROXINE 50MCG TABLET (0.05MG) PO SCH (05:50)
[2020-04-14 06:20] VITALS: BP 119/57
[2020-04-14] MEDS: SERTRALINE HCL 50 MG TAB PO SCH (08:28)
[2020-04-14] MEDS ORDERED: SERTRALINE HCL 25 MG TABLET PO ONE (16:00)
[2020-04-14 16:36] VITALS: BP 102/56
[2020-04-14] MEDS: LACTOBACILLUS ACIDOPHILUS CAP (BACID) PO SCH (20:58)
[2020-04-14] MEDS: ASCORBIC ACID 500 MG TAB PO SCH (20:58)
[2020-04-14] MEDS: ARIPiprazole 10 MG TAB PO SCH (20:58)
[2020-04-14] MEDS: VITAMIN D 1,000 INTERNATIONAL UNITS TABLET PO SCH (20:58)
[2020-04-14] MEDS: PRAVASTATIN 20 MG TAB PO SCH (20:58)
[2020-04-14] MEDS: MONTELUKAST 10 MG TAB PO SCH (20:58)
[2020-04-14] MEDS: MULTIVITAMINS/MINERALS THERAP 1 TAB PO SCH (20:58)
--- NOTE | 2020-04-14 23:06 | MHIPN ---
DATE: 04/14/2020 Vital Signs: Blood pressure 102/56, pulse 84, temperature 98. This is a video assessment; it is being done because of the virus pandemic. I am assigned to her care for today. She is seen in the presence of staff. CHIEF COMPLAINT: Feels anxious. SUBJECTIVE: Indicates feels anxious, particularly when she gets up early in the morning, which she tends to do, and then starts thinking of the virus, her concerns regarding it, and spreading it when she goes home. She says she has spoken with her about this as well, who suggests that she just come home as she wishes to. She says has been in contact with her son, Konstantin, as well, though time frame is unclear. Says was constipated this morning, feels better now. Her appetite is okay, sleep fair but wakes up early. MENTAL STATUS EXAM: Neat, cooperative, no agitation, no psychomotor retardation, coherent, feels mildly anxious, remains focused on the virus and concerns. Denies any suicidal thoughts or intent. No homicidal ideas or intent. Cognition grossly intact. Judgment and insight possibly somewhat improved, but remains compromised. ASSESSMENT: Major depressive disorder with psychotic features. Consider delusional disorder. PLAN: She is possibly a little less anxious, but anxiety, a low mood remain significant features. The sertraline will be increased to 75 mg daily, no other changes made as regards medications. I would suggest continue preparing for discharge, coordinating with the family. Meanwhile, encourage participation in activities on the unit. Further recommendations will be made depending on the clinical picture. She will see the assigned psychiatrist tomorrow.
[2020-04-15] MEDS: LEVOTHYROXINE 50MCG TABLET (0.05MG) PO SCH (05:51)
[2020-04-15 06:30] VITALS: BP 127/57
[2020-04-15] MEDS: SERTRALINE HCL 25 MG TABLET PO SCH (08:03)
[2020-04-15 16:29] VITALS: BP 106/62
--- NOTE | 2020-04-15 17:27 | MHIPN ---
DATE: 04/15/2020 This is a televideo assessment. It is being one because of the virus pandemic. She is aware of it and agrees to it. She is seen in the presence of staff. VITAL SIGNS: Blood pressure 127/57, pulse 77, temperature 98.1. CHIEF COMPLAINT: Feels anxious. SUBJECTIVE: See in the presence of staff. Indicates has been okay but still anxious. Worries about her , who had an appointment today with his doctor. She does not know the outcome of the appointment. Is anxious about finding out and hopes to hear from her family later. Remains concerned about how she may respond to all this and concerned about the virus and her taking it home when she goes. She says she is not sure the best place for her is home or her son's place, Konstantin's. Says that has been hinted at but not discussed. Gets anxious in the evening in particular. Did not wake up too early this morning but has thoughts about the virus and has felt guilty being in hospital and not diminishing her anxieties. MENTAL STATUS EXAMINATION: She is neat. She is cooperative. No agitation. No psychomotor retardation. Has mild anxiety. Denies any thoughts of harming herself or anyone else. There is some concern regarding the virus, and thoughts related to that possibly reach delusional proportions, though quite concerned with the anxiety. Cognition grossly intact. Judgment and insight remain compromised. ASSESSMENT: 1. Major depressive disorder with psychotic features. 2. Delusional disorder. She is somewhat less anxious, but the anxiety, low mood continue to remain significant barriers for her reintegrating at home. PLAN: The sertraline has been increased to 75 mg daily. She has tolerated it well so far. Has had the second dose today. Continue rest of the care and encourage participation in activities. Also encourage planning for discharge. Will need to involve the family. Further recommendations will be made, depending on the clinical picture, when she will see the assigned psychiatrist.
[2020-04-15] MEDS: MONTELUKAST 10 MG TAB PO SCH (20:37)
[2020-04-15] MEDS: ASCORBIC ACID 500 MG TAB PO SCH (20:37)
[2020-04-15] MEDS: VITAMIN D 1,000 INTERNATIONAL UNITS TABLET PO SCH (20:37)
[2020-04-15] MEDS: ARIPiprazole 10 MG TAB PO SCH (20:37)
[2020-04-15] MEDS: PRAVASTATIN 20 MG TAB PO SCH (20:37)
[2020-04-15] MEDS: MULTIVITAMINS/MINERALS THERAP 1 TAB PO SCH (20:37)
[2020-04-15] MEDS: LACTOBACILLUS ACIDOPHILUS CAP (BACID) PO SCH (20:37)
[2020-04-16] MEDS: LEVOTHYROXINE 50MCG TABLET (0.05MG) PO SCH (05:43)
[2020-04-16 06:22] VITALS: BP 128/60
[2020-04-16] MEDS: SERTRALINE HCL 25 MG TABLET PO SCH (08:39)
[2020-04-16 17:30] VITALS: BP 105/51
--- NOTE | 2020-04-16 18:13 | MHIPN ---
DATE: 04/16/2020 VITAL SIGNS: Blood pressure 128/60, pulse 94, temperature 98.1. This is telehealth video assessment, in the presence of staff, we are doing this because of the virus pandemic. CHIEF COMPLAINT: She feels anxious. SUBJECTIVE: She is seen for followup, in the presence of staff. She says she feels anxious, worries about her , and concerns regarding her making him ill if she were to go home, says she thinks about it, she spoke with him today and yesterday. She says she slept okay last night, but when she gets up, is anxious about the above. Appetite is okay. MENTAL STATUS EXAMINATION: Neat, cooperative, coherent, somewhat less fidgety, appears somewhat less anxious, but remains focused, somewhat circumstantial, regarding the virus, and her concerns, 's health. Affect restricted in range, from what I can tell, she is wearing a mask, but it shows some range. She denies any active thoughts of harming herself. No thoughts of harming anyone else. Thoughts related to the virus remain significant, but possibly not as delusional in terms of their intensity. Cognition is grossly intact. Judgment and insight are improved, but still compromised. ASSESSMENT: 1. Major depressive disorder with psychotic features. 2. Rule out delusional disorder. Somewhat less anxious, but the anxiety remains significant, in terms of it interfering with her ability to be confident about going home. PLAN: I suggest that the sertraline is increased to 100 mg daily. She has tolerated the increase to 75 mg quite well. The increase is to help with addressing her anxieties and mood. No other changes made as regards to medications. I would also suggest continuing to plan for discharge, it is preferable that a conversation, input, is held with the patient's and the patient's son, Konstantin, being involved. She is to be encouraged to participate in activities on the unit. Further recommendations will be made depending on the clinical picture. She will be seeing the assigned psychiatrist tomorrow. I have been assigned to her care for today.
[2020-04-16] MEDS: PRAVASTATIN 20 MG TAB PO SCH (20:41)
[2020-04-16] MEDS: MONTELUKAST 10 MG TAB PO SCH (20:41)
[2020-04-16] MEDS: LACTOBACILLUS ACIDOPHILUS CAP (BACID) PO SCH (20:41)
[2020-04-16] MEDS: ARIPiprazole 10 MG TAB PO SCH (20:41)
[2020-04-16] MEDS: MULTIVITAMINS/MINERALS THERAP 1 TAB PO SCH (20:41)
[2020-04-16] MEDS: ASCORBIC ACID 500 MG TAB PO SCH (20:41)
[2020-04-16] MEDS: VITAMIN D 1,000 INTERNATIONAL UNITS TABLET PO SCH (20:42)
[2020-04-17] MEDS: LEVOTHYROXINE 50MCG TABLET (0.05MG) PO SCH (06:19)
--- NOTE | 2020-04-17 06:30 | MHIPN ---
DATE: 04/13/2020 VITAL SIGNS: Blood pressure 126/81, pulse 76, temperature 99.2. This is a video assessment. It is being done because of the virus pandemic. She is aware of it and agrees to it. CHIEF COMPLAINT: Feels anxious. SUBJECTIVE: She is seen for followup. I am assigned to her care today. She is in the inpatient unit. She is seen in the presence of staff. Has been feeling anxious. Anxieties persist, mostly related to concerns regarding her , whom I understand is now home. Her son, Konstantin, has been coordinating these matters. Patient remains focused on some somatic symptoms as well as concerns regarding "taking the virus home" with her when is discharged. Sleep is fair; tends to wake up somewhat anxious. Appetite is okay. MENTAL STATUS EXAMINATION: Neat, cooperative. Mildly fidgety. Coherent. No psychomotor retardation. Displays mild anxiety, which tends to worsen a bit. Denies any thoughts of harming herself or anyone else. No overt psychotic features elicited, though concerns regarding the virus, broader sense, are probably delusional to some extent. Cognition grossly intact. Judgment and insight improved but still compromised. ASSESSMENT: Major depressive disorder, possibly with psychotic features. The differential diagnosis would include illness anxiety disorder as well as delusional disorder. Is anxious, possibly less so in terms of intensity, but intensity remains a feature. PLAN: Continue current care, observation, and encourage participation in activities in the unit. I would also suggest that the sertraline is increased to 75 mg daily. Coordination ought to proceed in terms of discharge planning. Further recommendations will be made depending on the clinical picture. She will be seeing the assigned psychiatrist tomorrow.
[2020-04-17 06:46] VITALS: BP 122/58
[2020-04-17] MEDS: SERTRALINE 100 MG TAB PO SCH (08:22)
[2020-04-17 16:06] VITALS: BP 118/56
[2020-04-17] MEDS: ASCORBIC ACID 500 MG TAB PO SCH (20:24)
[2020-04-17] MEDS: PRAVASTATIN 20 MG TAB PO SCH (20:24)
[2020-04-17] MEDS: VITAMIN D 1,000 INTERNATIONAL UNITS TABLET PO SCH (20:24)
[2020-04-17] MEDS: MONTELUKAST 10 MG TAB PO SCH (20:24)
[2020-04-17] MEDS: MULTIVITAMINS/MINERALS THERAP 1 TAB PO SCH (20:25)
[2020-04-17] MEDS: LACTOBACILLUS ACIDOPHILUS CAP (BACID) PO SCH (20:25)
[2020-04-17] MEDS: ARIPiprazole 10 MG TAB PO SCH (20:25)
[2020-04-18] MEDS: LEVOTHYROXINE 50MCG TABLET (0.05MG) PO SCH (06:00)
[2020-04-18 06:21] VITALS: BP 110/58
[2020-04-18] MEDS: SERTRALINE 100 MG TAB PO SCH (08:33)
--- NOTE | 2020-04-18 10:47 | MHIPN ---
DATE: 04/17/2020 Vital Signs: Blood pressure 118/56, pulse 72, temperature 98. This is a video assessment; it is being done because of the virus pandemic. Patient is aware of this, agrees with the it. She is seen in the presence of staff. CHIEF COMPLAINT: Feels anxious. SUBJECTIVE: Seen for followup. Indicates has been feeling anxious, mostly recently, within the last hour or so, as there has been a new patient come in, patient says that the new patient has been coughing, so that causes concern for the patient, is worried about that. Anxieties have gone up with that. Says last night was relatively okay, and that she had done well. Appetite is fair. Says has not spoken with her family regarding discharge. MENTAL STATUS EXAM: Neat, cooperative. No agitation. No psychomotor retardation but somewhat hesitant of speech, appears anxious with a restricted affect, congruent. Denies thoughts of harming herself or anyone else, and there is no evidence at present of any psychosis, as such, the concerns regarding the virus are high, but probably not reaching delusional proportions at present. Cognition is grossly intact. Her judgment and insight improved but compromised. ASSESSMENT: Major depressive disorder, possibly with psychotic features. Differential diagnosis still includes illness anxiety disorder. PLAN: Continue current care, observation. The Zoloft has been increased to 100 mg daily. Continue working towards discharge, and arranging for a family meeting, with her , her son Konstantin, with the patient., prior to discharge. Further recommendations will be made depending on how she does.
[2020-04-18 16:56] VITALS: BP 112/56
[2020-04-18] MEDS: MULTIVITAMINS/MINERALS THERAP 1 TAB PO SCH (20:19)
[2020-04-18] MEDS: VITAMIN D 1,000 INTERNATIONAL UNITS TABLET PO SCH (20:19)
[2020-04-18] MEDS: MONTELUKAST 10 MG TAB PO SCH (20:19)
[2020-04-18] MEDS: LACTOBACILLUS ACIDOPHILUS CAP (BACID) PO SCH (20:19)
[2020-04-18] MEDS: ARIPiprazole 10 MG TAB PO SCH (20:19)
[2020-04-18] MEDS: ASCORBIC ACID 500 MG TAB PO SCH (20:19)
[2020-04-18] MEDS: PRAVASTATIN 20 MG TAB PO SCH (20:19)
[2020-04-19] MEDS: LEVOTHYROXINE 50MCG TABLET (0.05MG) PO SCH (06:06)
[2020-04-19 06:27] VITALS: BP 116/78
[2020-04-19] MEDS: SERTRALINE 100 MG TAB PO SCH (08:25)
[2020-04-19 16:20] VITALS: BP 123/57
[2020-04-19] MEDS: LACTOBACILLUS ACIDOPHILUS CAP (BACID) PO SCH (20:09)
[2020-04-19] MEDS: MONTELUKAST 10 MG TAB PO SCH (20:09)
[2020-04-19] MEDS: ASCORBIC ACID 500 MG TAB PO SCH (20:09)
[2020-04-19] MEDS: PRAVASTATIN 20 MG TAB PO SCH (20:09)
[2020-04-19] MEDS: VITAMIN D 1,000 INTERNATIONAL UNITS TABLET PO SCH (20:09)
[2020-04-19] MEDS: MULTIVITAMINS/MINERALS THERAP 1 TAB PO SCH (20:09)
[2020-04-19] MEDS: ARIPiprazole 10 MG TAB PO SCH (20:09)
[2020-04-20] MEDS: LEVOTHYROXINE 50MCG TABLET (0.05MG) PO SCH (05:49)
[2020-04-20 06:13] VITALS: BP 108/55
[2020-04-20] MEDS: SERTRALINE 100 MG TAB PO SCH (08:16)
[2020-04-20] MEDS ORDERED: TRAZ-252 PO (14:26)
[2020-04-20] MEDS ORDERED: SERT-138 PO (14:26)
[2020-04-20] MEDS ORDERED: ABIL10TA9 PO (14:26)
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
== END 2020-04-20 19:50 | disposition home or self-care (01) | DRG 882 ==
LOC: M ED 15:41 → M ED INP 21:13 → M PSY 04-04 01:29
PROVIDERS: ADMIT Psychiatry & Neurology Addiction Medicine; ATTEND Psychiatry & Neurology Addiction Medicine
DX: F43.22 Adjustment disorder with anxiety (principal); F43.10 Post-traumatic stress disorder, unspecified; Z79.899 Other long term (current) drug therapy; Z62.810 Personal history of physical and sexual abuse in childhood; Z88.2 Allergy status to sulfonamides; Z88.8 Allergy status to other drugs, medicaments and biological substances; Z91.013 Allergy to seafood

== ENCOUNTER → 2021-08-19 | Outpatient (REF) | payer MEDICARE, BC ==
[~2021-08-19] MED LIST changes: +ABIL10TA9 PO; +SERT-138 PO; +TRAZ-252 PO
[2021-08-19 15:38] LABS: BASO # 0.1 10^3/uL (0.0-0.2); BASO % 1.1 % (0.0-1.0); EOS # 0.1 10^3/uL (0.0-0.5); EOS % 1.4 % (0.0-3.0); HEMOGLOBIN 13.6 g/dl (12.0-15.5); LYMPH # 1.3 10^3/uL (1.5-5.0); LYMPH % 18.3 % (24.0-44.0); MEAN CORPUSCULAR HEMOGLOBIN 29.4 pg (27.0-33.0); MEAN CORPUSCULAR HGB CONC 31.6 g/dl (32.0-36.5); MEAN CORPUSCULAR VOLUME 92.9 fl (80.0-96.0); MONO # 0.6 10^3/uL (0.0-0.8); MONO % 8.2 % (2.0-8.0); NEUTROPHILS # 5.1 10^3/uL (1.5-8.5); NEUTROPHILS % 70.7 % (36.0-66.0); PLATELET COUNT, AUTOMATED 388 10^3/uL (150-450); RED BLOOD COUNT 4.63 10^6/uL (4.00-5.40); WHITE BLOOD COUNT 7.2 10^3/uL (4.0-10.0)
[2021-08-19 16:10] LABS: ERYTHROCYTE SEDIMENTATION RATE 59 mm/hr (0-30)
[2021-08-24 18:11] LABS: ASPERGILLUS FLAVUS ABY Negative (Neg:<1:1); ASPERGILLUS FUMIGATUS ABY Negative (Neg:<1:1); ASPERGILLUS NIGER ABY Negative (Neg:<1:1)
== END ==
LOC: M LAB REF 12:44
PROVIDERS: ATTEND Internal Medicine Pulmonary Disease
DX: J45.40 Moderate persistent asthma, uncomplicated (principal); R91.8 Other nonspecific abnormal finding of lung field

== ENCOUNTER → 2022-01-11 | Outpatient (REF) | payer MEDICARE, BC ==
[~2022-01-11] MED LIST changes: -D31000TA2 PO; +VITA100093 PO
[2022-01-11 16:42] LABS: APPEARANCE, URINE HAZY (CLEAR); BACTERIA, URINE AUTO NEGATIVE (NEGATIVE); BILIRUBIN, URINE AUTO NEGATIVE (NEGATIVE); BLOOD, URINE BLOOD NEGATIVE (NEGATIVE); COLOR, URINE AMBER (YELLOW); GLUCOSE, URINE (UA) AUTO NEGATIVE (NEGATIVE); KETONE, URINE AUTO TRACE mg/dL (NEGATIVE); LEUKOCYTE ESTERASE, URINE AUTO NEGATIVE (NEGATIVE); MUCUS, URINE SMALL (NEGATIVE); NITRITE, URINE AUTO NEGATIVE (NEGATIVE); PROTEIN, URINE AUTO NEGATIVE (NEGATIVE); RBC, URINE AUTO 5 /HPF (0-3); SPECIFIC GRAVITY URINE AUTO 1.028 (1.002-1.035); SQUAMOUS EPITHELIAL CELL UR AU 0 /HPF (0-6); WBC, URINE AUTO 0 /HPF (0-3)
[2022-01-11 17:11] LABS: BASO # 0.1 10^3/uL (0.0-0.2); BASO % 0.8 % (0.0-1.0); EOS # 0.1 10^3/uL (0.0-0.5); EOS % 1.1 % (0.0-3.0); HEMATOCRIT 48.1 % (36.0-47.0); HEMOGLOBIN 15.7 g/dl (12.0-15.5); LYMPH # 1.7 10^3/uL (1.5-5.0); LYMPH % 14.6 % (24.0-44.0); MEAN CORPUSCULAR HEMOGLOBIN 29.9 pg (27.0-33.0); MEAN CORPUSCULAR HGB CONC 32.6 g/dl (32.0-36.5); MEAN CORPUSCULAR VOLUME 91.6 fl (80.0-96.0); MONO # 0.7 10^3/uL (0.0-0.8); MONO % 6.4 % (2.0-8.0); NEUTROPHILS # 8.8 10^3/uL (1.5-8.5); NEUTROPHILS % 76.8 % (36.0-66.0); PLATELET COUNT, AUTOMATED 374 10^3/uL (150-450); RED BLOOD COUNT 5.25 10^6/uL (4.00-5.40); WHITE BLOOD COUNT 11.5 10^3/uL (4.0-10.0)
[2022-01-11 17:27] LABS: TOTAL PROTEIN,RANDOM URINE 14.1 MG/DL (0.0-12.0)
[2022-01-11 17:35] LABS: ERYTHROCYTE SEDIMENTATION RATE 19 mm/hr (0-30)
[2022-01-11 17:43] LABS: ALT/SGPT 23 U/L (12-78); BILIRUBIN,DIRECT 0.2 MG/DL (0.0-0.2); BILIRUBIN,TOTAL 0.4 MG/DL (0.2-1.0); BLOOD UREA NITROGEN 22 MG/DL (7-18); C REACTIVE PROTEIN QUANTITATIV 0.89 MG/DL (0.00-0.30); CALCIUM LEVEL 9.6 MG/DL (8.8-10.2); CARBON DIOXIDE LEVEL 29 MEQ/L (21-32); CHLORIDE LEVEL 105 MEQ/L (98-107); COMPLEMENT C3 146 MG/DL (90-180); COMPLEMENT C4 45 MG/DL (10-40); CREATININE FOR GFR 0.92 MG/DL (0.55-1.30); GLOMERULAR FILTRATION RATE > 60.0 (>39); GLUCOSE, FASTING 86 MG/DL (70-100); IRON (FE) 70 UG/DL (50-170); PHOSPHORUS LEVEL 3.5 MG/DL (2.5-4.9); SODIUM LEVEL 139 MEQ/L (136-145); TOTAL PROTEIN 7.3 GM/DL (6.4-8.2)
[2022-01-11 17:51] LABS: TOTAL 25(OH) VITAMIN D 58.9 NG/ML (30.0-100.0)
[2022-01-11 17:52] LABS: HEPATITIS B SURFACE ANTIBODY POSITIVE (POSITIVE)
[2022-01-11 17:54] LABS: VITAMIN B12 LEVEL 703 PG/ML (247-911)
[2022-01-11 18:03] LABS: HEPATITIS B SURFACE ANTIGEN NEGATIVE (NEGATIVE)
[2022-01-11 18:30] LABS: HEPATITIS C VIRUS ABY INDEX 0.2 INDEX (<0.8)
== END ==
LOC: M SFHCRHEU 15:04
PROVIDERS: ATTEND Internal Medicine
DX: M06.4 Inflammatory polyarthropathy (principal); R91.1 Solitary pulmonary nodule; M79.10 Myalgia, unspecified site; Z11.59 Encounter for screening for other viral diseases; Z79.899 Other long term (current) drug therapy

== ENCOUNTER 2022-05-13 06:06 | Day surgery (SDC) | payer MEDICARE, BC ==
[~2022-05-13] VITALS: Ht 162.6 cm; Wt 97.5 kg
[~2022-05-13 06:06] MED LIST changes: +BREO1INH INH; +PRAV20TA2 PO; +SERT50TA29 PO; +VITATAB73 PO; +VITMTA PO
[2022-05-13] MEDS ORDERED: LR 1,000 ML IV SCH ×2 (06:35→09:35)
[2022-05-13] MEDS ORDERED: fentaNYL 100 MCG/2 ML INJECTION As Ordered ONE (07:07)
[2022-05-13] MEDS ORDERED: propofoL 200 MG/20 ML VIAL As Ordered ONE (07:07)
[2022-05-13] MEDS ORDERED: LIDOCAINE 2% 100MG/5ML SDV (FOR ANES.) As Ordered ONE (07:07)
[2022-05-13] MEDS ORDERED: MIDAZOLAM INJ 2MG/2ML VIAL (J2250 PER 1MG) As Ordered ONE (07:07)
[2022-05-13] MEDS ORDERED: BUPIVACAINE HCL 0.25% 30ML VIAL As Ordered ONE (07:15)
[2022-05-13] MEDS ORDERED: BACITRACIN OINTMENT 30GM TUBE As Ordered ONE (07:15)
[2022-05-13] MEDS ORDERED: ACETAMINOPHEN 1000MG 100ML IV BTL (OFIRMEV) (J0131 PER 10MG) As Ordered ONE (08:18)
[2022-05-13] MEDS ORDERED: ESMOLOL INJ 100MG/10ML VIAL As Ordered ONE (08:48)
[2022-05-13] MEDS ORDERED: METOCLOPRAMIDE INJ 10MG/2ML VIAL (J2765 PER 1) IV PRN (09:35)
[2022-05-13] MEDS ORDERED: ONDANSETRON 4MG 2ML VIAL IV PRN (09:35)
[2022-05-13] MEDS ORDERED: oxyCODONE 5MG TAB PO PRN (09:35)
[2022-05-13] MEDS ORDERED: fentaNYL 100 MCG/2 ML INJECTION IV PRN (09:35)
[2022-05-13] MEDS ORDERED: TRAM50TA2 PO (09:38)
[2022-05-13] MEDS ORDERED: traMADol 50 MG TAB PO PRN (09:40)
[2022-05-13 11:12] VITALS: BP 144/76
== END 2022-05-13 11:20 | disposition home or self-care (01) ==
LOC: M SDC 06:06
PROVIDERS: ATTEND Orthopaedic Surgery Hand Surgery
DX: G56.02 Carpal tunnel syndrome, left upper limb (principal); E78.5 Hyperlipidemia, unspecified; E03.9 Hypothyroidism, unspecified; F32.A Depression, unspecified; Z88.2 Allergy status to sulfonamides; Z88.1 Allergy status to other antibiotic agents; Z91.013 Allergy to seafood; Z79.899 Other long term (current) drug therapy; J45.909 Unspecified asthma, uncomplicated; Z87.891 Personal history of nicotine dependence
CPT/HCPCS: 64721; C1762; J0131; J2250; J3010